=== PATIENT | female | born 1970 | race Hispanic/Latino ===

== ENCOUNTER 2021-04-09 06:00 | Day surgery (SDC) | payer MEDICAID ==
[2021-04-06 10:45] VITALS: BP 178/94
[2021-04-06 11:11] LABS: BASOPHILS % (AUTO) 0.5 % (0.0-5.0); EOSINOPHILS % (AUTO) 1.2 % (0.0-8.0); HEMATOCRIT 43.1 % (36-48); LYMPHOCYTES % (AUTO) 24.9 % (21.0-51.0); MEAN CORPUSCULAR HEMOGLOBIN 30.3 pg (27.0-33.0); MEAN CORPUSCULAR HGB CONC 32.7 g/dL (32.0-36.0); MEAN CORPUSCULAR VOLUME 92.7 fL (79-99); MONOCYTES % (AUTO) 6.8 % (3.0-13.0); PLATELET COUNT (AUTO) 256 K/uL (130-400); RED BLOOD CELL COUNT(AUTO) 4.65 MIL/uL (4.00-5.50); RED CELL DISTRIBUTION WIDTH 13.5 % (11.0-15.5); WHITE BLOOD COUNT (AUTO) 10.5 K/uL (4.8-10.8)
[2021-04-06 11:14] LABS: CREATININE 0.7 mg/dL (0.5-1.5); POTASSIUM 4.4 mmol/L (3.5-5.1)
[2021-04-06 11:23] LABS: INR 0.98 (0.85-1.15); PROTHROMBIN TIME 10.7 SEC (9.6-11.6)
[2021-04-06 11:24] LABS: PARTIAL THROMBOPLASTIN TIME 25.8 SEC (26.3-35.5)
[~2021-04-09] VITALS: Ht 149.9 cm; Wt 72.8 kg
[2021-04-09] VITALS (22 sets, daily range): BP systolic 136–162; BP diastolic 80–103
[2021-04-09] MEDS: CEFAZOLIN SODIUM 1 GM VIAL IVP SCH ×2 (05:00→07:57)
[~2021-04-09 06:00] MED LIST: ACET-2743 PO; ALPR1TAB2 PO; BUPR-49 PO; ERGO500093 PO; HYDR200T4 PO; NAPR500T6 PO
[2021-04-09] MEDS ORDERED: LACTATED RINGERS 1000ML 1,000 ML IV ONE (06:35)
[2021-04-09] MEDS ORDERED: LIDOCAINE PF 100MG/5ML (2%) SYRINGE 5ML ONE (07:21)
[2021-04-09] MEDS ORDERED: ROCURONIUM 10MG/1ML SYR 10 MG/ML ML ONE ×2 (07:21→08:32)
[2021-04-09] MEDS ORDERED: SUCCINYLCHOLINE CHLORIDE 20 MG/ML 10 ML VIAL ONE (07:21)
[2021-04-09] MEDS ORDERED: MIDAZOLAM HCL 1 MG/ML 2ML VIAL ONE (07:21)
[2021-04-09] MEDS ORDERED: DEXAMETHASONE SOD PHOSPHATE 10MG/ML 1ML VIAL ONE (07:21)
[2021-04-09] MEDS ORDERED: PROPOFOL 10 MG/ML 20ML VIAL IV ONE (07:21)
[2021-04-09] MEDS ORDERED: ONDANSETRON 4MG INJ ONE (07:21)
[2021-04-09] MEDS ORDERED: FENTANYL CITRATE PF 50 MCG/1 ML 2ML VIAL ONE ×3 (07:23→09:24)
[2021-04-09] MEDS ORDERED: LIDOCAINE 1%-EPI 1:100,000 20 ML VIAL IJ SCH ×2 (08:00→10:00)
[2021-04-09] MEDS ORDERED: PHENYLEPHRINE HCL 10 MG/ML 1ML VIAL IV ONE (08:19)
[2021-04-09] MEDS ORDERED: NEOSTIGMINE 5MG/5ML SYR IV ONE (08:42)
[2021-04-09] MEDS ORDERED: GLYCOPYRROLATE 1 MG/5 ML SYRINGE ONE (08:42)
[2021-04-09] MEDS ORDERED: BACITRACIN 28.4 GM OINT TP ONE (09:16)
[2021-04-09] MEDS ORDERED: BUPIVACAINE/EPI/PF 0.25% 10ML VIAL IJ ONE (09:55)
== END 2021-04-09 15:01 | disposition home or self-care (01) ==
LOC: DAH 06:00
PROVIDERS: ATTEND Otolaryngology Plastic Surgery within the Head & Neck
DX: L90.5 Scar conditions and fibrosis of skin (principal); I10 Essential (primary) hypertension; K21.9 Gastro-esophageal reflux disease without esophagitis; E66.9 Obesity, unspecified; M06.9 Rheumatoid arthritis, unspecified; F41.9 Anxiety disorder, unspecified; Z20.822 Contact with and (suspected) exposure to COVID-19; Z79.01 Long term (current) use of anticoagulants; Z68.30 Body mass index [BMI] 30.0-30.9, adult
CPT/HCPCS: 11444; 11446; 12054; 36415; 71045; 80048; 84703; 85025; 85610; 85730; 87635; 93005; A4213; A4215; A4221; A4222; A4223; A4606; A4663; A6260; C9803; J0330; J0690; J1100; J2250; J2370; J2405; J2710; J3010 ×3; J3490 ×4; J7120 ×2; S0020; J2001; J2704